=== PATIENT | female | born 1990 | race African-American/Black ===

== ENCOUNTER 2017-07-11 14:59 | Emergency (ER) | payer MEDICAID ==
[~2017-07-11] VITALS: Ht 160 cm; Wt 120.0 kg
[~2017-07-11 14:59] MED LIST: COGENTIN 1MG1 MG/TAB PO; DEPAKOTE ER 25250 MG PO; DEPAKOTE ER 50500 MG PO; HALDOL 5MG T5 MG/TAB PO; HALDOL DEC100 MG/1 M IM; KLONOPIN WAFERS1 MG PO; RISPERDAL 0.20.25 MG PO; SEROQUEL 1100 MG/TAB PO
[2017-07-11 15:10] VITALS: BP 119/61; TEMP 98
[2017-07-11] MEDS ORDERED: HALDOL 1MG T1 MG/TAB PO (15:49)
[2017-07-11 15:51] LABS: COLLECTION METHOD CLEAN CATCH
[2017-07-11 15:58] LABS: PH 6 (5-8); SQUAMOUS EPITHELIAL None Seen /hpf; URINE APPEARANCE Clear; URINE BACTERIA None Seen /hpf; URINE BILIRUBIN Negative (NEGATIVE); URINE BLOOD 1+ (NEGATIVE); URINE COLOR Colorless; URINE GLUCOSE Negative (NEGATIVE); URINE KETONE Negative (NEGATIVE); URINE LEUKOCYTE ESTERASE Negative (NEGATIVE); URINE NITRATE Negative (NEGATIVE); URINE PROTEIN(semi-quant) Negative (NEGATIVE); URINE RBC 0-2 /hpf; URINE UROBILINOGEN Negative (NEGATIVE)
[2017-07-11 16:05] LABS: TRICYCLIC ANTIDEPRESS URINE NEGATIVE
[2017-07-11 16:16] LABS: ACETAMINOPHEN < 10 ug/mL (10-30); ALANINE AMINOTRANSFERASE 24 U/L (9-52); ALBUMIN 4.5 gm/dL (3.5-5.0); ALCOHOL(ethanol),MEDICAL < 10 mg/dL; ALKALINE PHOSPHATASE 69 U/L (50-136); ANION GAP 9 mmol/L (7-16); AST,SGOT 14 U/L (15-37); BILIRUBIN,TOTAL 0.2 mg/dL (0.0-1.0); BLOOD UREA NITROGEN 5 mg/dL (7-17); CALCIUM 9.5 mg/dL (8.4-10.2); CARBON DIOXIDE 27 mmol/L (22-30); CHLORIDE 105 mmol/L (98-107); GLUCOSE 73 mg/dL (74-106); POTASSIUM 3.7 mmol/L (3.4-5.0); SALICYLATE < 1.0 mg/dL; SODIUM 140 mmol/L (137-145); TOTAL PROTEIN 7.7 gm/dL (6.4-8.2)
[2017-07-11 16:17] LABS: BASO % 0.2 % (0.0-2.0); EOS # 0.1 (0.0-0.7); EOS % 0.9 % (0-4.0); GRAN % 55.4 % (42.2-75.2); HEMATOCRIT 41.6 % (37.0-47.0); HEMOGLOBIN 13.6 g/dl (12.5-16.0); LYMPH # 3.4 (1.2-3.4); MEAN CELL VOLUME 87 fl (80.0-100.0); MEAN CORPUSCULAR HEMOGLOBIN 28 pg (27.0-31.0); MEAN CORPUSCULAR HGB CONC 33 g/dl (33.0-37.0); MEAN PLATELET VOLUME 10.9 fl (7.4-10.4); MONO # 0.6 (0.1-0.6); MONO % 6.3 % (1.7-9.3); PLATELET COUNT 359 K/mm3 (130-400); RED BLOOD COUNT 4.81 M/mm3 (4.10-5.30); REDCELL DISTRIBUTION WIDTH-CV 14.5 % (11.5-14.5)
[2017-07-11 19:09] VITALS: PULSE 80
== END 2017-07-11 19:14 ==
LOC: COL.ER 14:59
PROVIDERS: Emergency Medicine
DX: F20.9 Schizophrenia, unspecified (principal); R45.851 Suicidal ideations; F32.9 Major depressive disorder, single episode, unspecified; F17.210 Nicotine dependence, cigarettes, uncomplicated

== ENCOUNTER 2017-09-05 13:52 | Emergency (ER) | payer MEDICARE, MEDICAID ==
[~2017-09-05] VITALS: Ht 157.5 cm; Wt 81.8 kg
[~2017-09-05 13:52] MED LIST changes: +HALDOL 1MG T1 MG/TAB PO
[2017-09-05 14:21] VITALS: TEMP 98.2
[2017-09-05 16:52] LABS: BASO % 0.3 % (0.0-2.0); EOS # 0.1 (0.0-0.7); EOS % 0.7 % (0-4.0); GRAN # 3.3 (1.4-6.5); GRAN % 47.6 % (42.2-75.2); HEMATOCRIT 38.4 % (37.0-47.0); HEMOGLOBIN 12.7 g/dl (12.5-16.0); LYMPH % 42.7 % (20.0-51.0); MEAN CELL VOLUME 85 fl (80.0-100.0); MEAN CORPUSCULAR HEMOGLOBIN 28 pg (27.0-31.0); MEAN CORPUSCULAR HGB CONC 33 g/dl (33.0-37.0); MEAN PLATELET VOLUME 10.4 fl (7.4-10.4); MONO # 0.6 (0.1-0.6); MONO % 8.6 % (1.7-9.3); PLATELET COUNT 319 K/mm3 (130-400); RED BLOOD COUNT 4.54 M/mm3 (4.10-5.30); REDCELL DISTRIBUTION WIDTH-CV 15.2 % (11.5-14.5)
[2017-09-05 17:05] LABS: ACETAMINOPHEN < 10 ug/mL (10-30); ALANINE AMINOTRANSFERASE 25 U/L (9-52); ALBUMIN 3.9 gm/dL (3.5-5.0); ALCOHOL(ethanol),MEDICAL < 10 mg/dL; ALKALINE PHOSPHATASE 68 U/L (50-136); ANION GAP 12 mmol/L (7-16); AST,SGOT 15 U/L (15-37); BILIRUBIN,TOTAL 0.1 mg/dL (0.0-1.0); BLOOD UREA NITROGEN 6 mg/dL (7-17); CARBON DIOXIDE 26 mmol/L (22-30); CHLORIDE 104 mmol/L (98-107); CREATININE, serum 0.76 mg/dL (0.52-1.25); GLUCOSE 101 mg/dL (74-106); MAGNESIUM 2.1 mg/dL (1.6-2.3); POTASSIUM 3.9 mmol/L (3.4-5.0); SALICYLATE < 1.0 mg/dL; SODIUM 142 mmol/L (137-145); TOTAL PROTEIN 7.2 gm/dL (6.4-8.2)
[2017-09-05 17:17] LABS: VALPROIC ACID (DEPAKENE) < 10.0 ug/mL (50.0-100.0)
[2017-09-05 18:20] LABS: COLLECTION METHOD RANDOM VOIDED
[2017-09-05 18:30] LABS: MUCOUS Present /lpf; PH 5 (5-8); URINE APPEARANCE Cloudy; URINE BACTERIA None Seen /hpf; URINE BILIRUBIN Negative (NEGATIVE); URINE BLOOD 3+ (NEGATIVE); URINE COLOR Amber; URINE GLUCOSE Negative (NEGATIVE); URINE KETONE Negative (NEGATIVE); URINE LEUKOCYTE ESTERASE Trace (NEGATIVE); URINE NITRATE Negative (NEGATIVE); URINE PROTEIN(semi-quant) 2+ (NEGATIVE); URINE RBC >50 /hpf
[2017-09-05 18:35] LABS: TRICYCLIC ANTIDEPRESS URINE NEGATIVE
[2017-09-05] MEDS ORDERED: CEFTIN500 MG PO (21:26)
[2017-09-05 22:00] VITALS: BP 111/63
[2017-09-06 00:45] VITALS: PULSE 88
== END 2017-09-06 00:45 | disposition home or self-care (01) ==
LOC: COL.ER 13:52
PROVIDERS: Emergency Medicine
DX: F20.9 Schizophrenia, unspecified (principal); F12.90 Cannabis use, unspecified, uncomplicated; R45.851 Suicidal ideations; R21 Rash and other nonspecific skin eruption; F17.210 Nicotine dependence, cigarettes, uncomplicated
CPT/HCPCS: J8540

== ENCOUNTER 2018-10-28 01:11 | Emergency (ER) | payer MEDICAID ==
[~2018-10-28] VITALS: Ht 160 cm; Wt 97.7 kg
[~2018-10-28 01:11] MED LIST changes: +CEFTIN500 MG PO; -DEPAKOTE ER 25250 MG PO
[2018-10-28 01:48] LABS: HEMOGLOBIN 11.6 g/dl (12.5-16.0); MEAN CELL VOLUME 90 fl (80.0-100.0); MEAN CORPUSCULAR HEMOGLOBIN 29 pg (27.0-31.0); MEAN CORPUSCULAR HGB CONC 32 g/dl (33.0-37.0); MEAN PLATELET VOLUME 9.5 fl (7.4-10.4); PLATELET COUNT 385 K/mm3 (130-400); RED BLOOD COUNT 4.06 M/mm3 (4.10-5.30); REDCELL DISTRIBUTION WIDTH-CV 14.6 % (11.5-14.5)
[2018-10-28 01:52] LABS: HEMATOCRIT 36.5 % (37.0-47.0)
[2018-10-28] MEDS ORDERED: ZYPREXA15 MG PO (02:08)
[2018-10-28 02:13] LABS: ALANINE AMINOTRANSFERASE 7 U/L (9-52); ALBUMIN 3.9 gm/dL (3.5-5.0); ALKALINE PHOSPHATASE 64 U/L (50-136); ANION GAP 10 mmol/L (7-16); AST,SGOT 17 U/L (15-37); BAND 1 % (0-10); BILIRUBIN,TOTAL 0.2 mg/dL (0.0-1.0); BLOOD UREA NITROGEN 10 mg/dL (7-17); CALCIUM 9.1 mg/dL (8.4-10.2); CARBON DIOXIDE 26 mmol/L (22-30); CHLORIDE 106 mmol/L (98-107); CREATININE, serum 0.81 (0.52-1.25); GLUCOSE 88 mg/dL (74-106); LYMPHOCYTE 57 % (20.0-51.0); NEUTROPHILS 38 % (42.0-75.2); POTASSIUM 3.6 mmol/L (3.4-5.0); SODIUM 142 mmol/L (137-145); TOTAL PROTEIN 7.2 gm/dL (6.4-8.2)
[2018-10-28 02:14] LABS: PLATELET ESTIMATE NORMAL (NORMAL)
[2018-10-28 02:15] LABS: COLLECTION METHOD CLEAN CATCH
[2018-10-28 02:16] LABS: ACETAMINOPHEN < 10 ug/mL (10-30); ALCOHOL(ethanol),MEDICAL < 10 mg/dL; SALICYLATE < 1.0 mg/dL
[2018-10-28 02:21] LABS: PH 7 (5-8); SQUAMOUS EPITHELIAL None Seen /hpf; URINE APPEARANCE Clear; URINE BACTERIA None Seen /hpf; URINE BILIRUBIN Negative (NEGATIVE); URINE BLOOD 2+ (NEGATIVE); URINE COLOR Colorless; URINE GLUCOSE Negative (NEGATIVE); URINE KETONE Negative (NEGATIVE); URINE LEUKOCYTE ESTERASE Negative (NEGATIVE); URINE NITRATE Negative (NEGATIVE); URINE PROTEIN(semi-quant) Negative (NEGATIVE); URINE RBC None Seen /hpf; URINE UROBILINOGEN Negative (NEGATIVE)
[2018-10-28 02:34] LABS: TRICYCLIC ANTIDEPRESS URINE NEGATIVE
[2018-10-28 14:22] VITALS: BP 117/61; PULSE 81; TEMP 98
== END 2018-10-28 14:30 ==
LOC: COL.ER 01:11
PROVIDERS: Emergency Medicine
DX: F25.1 Schizoaffective disorder, depressive type (principal)

== ENCOUNTER 2018-11-09 16:16 | Emergency (ER) | payer MEDICAID ==
[~2018-11-09] VITALS: Ht 160 cm; Wt 90.9 kg
[~2018-11-09 16:16] MED LIST changes: +ZYPREXA15 MG PO
[2018-11-09 16:23] VITALS: BP 134/98; PULSE 136; TEMP 97.7
== END 2018-11-09 17:06 | disposition left against medical advice (07) ==
LOC: COL.ER 16:16
DX: R45.851 Suicidal ideations (principal)

== ENCOUNTER 2018-11-09 17:23 | Emergency (ER) | payer MEDICAID ==
[~2018-11-09] VITALS: Ht 157.5 cm; Wt 95.5 kg
[2018-11-09 17:35] VITALS: TEMP 99.2
[2018-11-09 18:22] LABS: COLLECTION METHOD CLEAN CATCH
[2018-11-09 18:30] LABS: PH 6 (5-8); URINE APPEARANCE Hazy; URINE BACTERIA None Seen /hpf; URINE BILIRUBIN Negative (NEGATIVE); URINE BLOOD Negative (NEGATIVE); URINE COLOR Yellow; URINE GLUCOSE Negative (NEGATIVE); URINE KETONE Trace (NEGATIVE); URINE LEUKOCYTE ESTERASE Negative (NEGATIVE); URINE NITRATE Negative (NEGATIVE); URINE PROTEIN(semi-quant) Negative (NEGATIVE); URINE RBC 0-2 /hpf
[2018-11-09 18:38] LABS: BASO % 0.1 % (0.0-2.0); EOS # 0.1 (0.0-0.7); EOS % 0.6 % (0-4.0); GRAN # 3.8 (1.4-6.5); GRAN % 49.4 % (42.2-75.2); HEMATOCRIT 38.5 % (37.0-47.0); HEMOGLOBIN 12.6 g/dl (12.5-16.0); LYMPH # 3.1 (1.2-3.4); LYMPH % 39.5 % (20.0-51.0); MEAN CELL VOLUME 87 fl (80.0-100.0); MEAN CORPUSCULAR HEMOGLOBIN 28 pg (27.0-31.0); MEAN CORPUSCULAR HGB CONC 33 g/dl (33.0-37.0); MEAN PLATELET VOLUME 10.4 fl (7.4-10.4); MONO # 0.8 (0.1-0.6); MONO % 10.3 % (1.7-9.3); PLATELET COUNT 291 K/mm3 (130-400); RED BLOOD COUNT 4.43 M/mm3 (4.10-5.30); REDCELL DISTRIBUTION WIDTH-CV 14.3 % (11.5-14.5)
[2018-11-09 18:41] LABS: TRICYCLIC ANTIDEPRESS URINE NEGATIVE
[2018-11-09 18:49] LABS: ACETAMINOPHEN < 10 ug/mL (10-30); ALANINE AMINOTRANSFERASE 16 U/L (9-52); ALBUMIN 3.9 gm/dL (3.5-5.0); ALCOHOL(ethanol),MEDICAL < 10 mg/dL; ALKALINE PHOSPHATASE 72 U/L (50-136); ANION GAP 8 mmol/L (7-16); AST,SGOT 17 U/L (15-37); BILIRUBIN,TOTAL 0.2 mg/dL (0.0-1.0); BLOOD UREA NITROGEN 11 mg/dL (7-17); CALCIUM 8.9 mg/dL (8.4-10.2); CARBON DIOXIDE 27 mmol/L (22-30); CHLORIDE 104 mmol/L (98-107); CREATININE, serum 0.74 (0.52-1.25); GLUCOSE 92 mg/dL (74-106); SALICYLATE < 1.0 mg/dL; SODIUM 139 mmol/L (137-145); TOTAL PROTEIN 7.3 gm/dL (6.4-8.2)
[2018-11-10 16:35] VITALS: BP 116/77; PULSE 98
== END 2018-11-10 17:22 ==
LOC: COL.ER 17:23
PROVIDERS: Nurse Practitioner
DX: R45.851 Suicidal ideations (principal); F20.9 Schizophrenia, unspecified; F17.210 Nicotine dependence, cigarettes, uncomplicated; F12.90 Cannabis use, unspecified, uncomplicated; J45.909 Unspecified asthma, uncomplicated

== ENCOUNTER 2018-11-22 18:12 | Emergency (ER) | payer MEDICAID ==
[~2018-11-22] VITALS: Ht 160 cm; Wt 95.5 kg
[2018-11-22 19:17] VITALS: TEMP 99.6
[2018-11-23 15:06] VITALS: BP 105/58
[2018-11-23 17:15] VITALS: PULSE 78
== END 2018-11-23 17:15 ==
LOC: COL.ER 18:16
DX: F29 Unspecified psychosis not due to a substance or known physiological condition (principal); F12.90 Cannabis use, unspecified, uncomplicated; F31.9 Bipolar disorder, unspecified; F20.9 Schizophrenia, unspecified

== ENCOUNTER 2019-02-08 19:01 | Emergency (ER) | payer MEDICAID ==
[~2019-02-08] VITALS: Ht 157.5 cm; Wt 95.5 kg
[2019-02-08 19:21] VITALS: BP 125/76; TEMP 98.1
[2019-02-08 20:24] LABS: COLLECTION METHOD CLEAN CATCH
[2019-02-08 20:30] LABS: PH 6 (5-8); URINE APPEARANCE Hazy; URINE BACTERIA Rare /hpf; URINE BILIRUBIN Negative (NEGATIVE); URINE BLOOD 3+ (NEGATIVE); URINE COLOR Yellow; URINE GLUCOSE Negative (NEGATIVE); URINE KETONE 1+ (NEGATIVE); URINE LEUKOCYTE ESTERASE Negative (NEGATIVE); URINE NITRATE Negative (NEGATIVE); URINE PROTEIN(semi-quant) Negative (NEGATIVE); URINE RBC 0-2 /hpf; URINE UROBILINOGEN Negative (NEGATIVE)
[2019-02-08 20:37] LABS: TRICYCLIC ANTIDEPRESS URINE NEGATIVE
[2019-02-08 20:41] LABS: BASO % 0.3 % (0.0-2.0); EOS % 0.1 % (0-4.0); GRAN # 3.6 (1.4-6.5); GRAN % 48.9 % (42.2-75.2); HEMATOCRIT 41.5 % (37.0-47.0); HEMOGLOBIN 13.6 g/dl (12.5-16.0); LYMPH # 3.2 (1.2-3.4); LYMPH % 43.8 % (20.0-51.0); MEAN CELL VOLUME 82 fl (80.0-100.0); MEAN CORPUSCULAR HEMOGLOBIN 27 pg (27.0-31.0); MEAN CORPUSCULAR HGB CONC 33 g/dl (33.0-37.0); MEAN PLATELET VOLUME 10.8 fl (7.4-10.4); MONO # 0.5 (0.1-0.6); MONO % 6.8 % (1.7-9.3); PLATELET COUNT 285 K/mm3 (130-400); RED BLOOD COUNT 5.04 M/mm3 (4.10-5.30)
[2019-02-08 20:53] LABS: ALANINE AMINOTRANSFERASE 7 U/L (9-52); ALBUMIN 4.5 gm/dL (3.5-5.0); ALKALINE PHOSPHATASE 65 U/L (50-136); ANION GAP 11 mmol/L (7-16); AST,SGOT 20 U/L (15-37); BILIRUBIN,TOTAL 0.3 mg/dL (0.0-1.0); BLOOD UREA NITROGEN 9 mg/dL (7-17); CALCIUM 9.6 mg/dL (8.4-10.2); CARBON DIOXIDE 24 mmol/L (22-30); CHLORIDE 106 mmol/L (98-107); CREATININE, serum 0.68 (0.52-1.25); GLUCOSE 106 mg/dL (74-106); POTASSIUM 4.2 mmol/L (3.4-5.0); SODIUM 140 mmol/L (137-145); TOTAL PROTEIN 7.8 gm/dL (6.4-8.2)
[2019-02-08 20:58] LABS: ACETAMINOPHEN < 10 ug/mL (10-30); ALCOHOL(ethanol),MEDICAL < 10 mg/dL; SALICYLATE < 1.0 mg/dL
[2019-02-08 21:13] LABS: VALPROIC ACID (DEPAKENE) 80.1 ug/mL (50.0-100.0)
[2019-02-08 21:38] VITALS: PULSE 86
== END 2019-02-08 21:35 | disposition home or self-care (01) ==
LOC: COL.ER 19:01
PROVIDERS: Emergency Medicine
DX: F29 Unspecified psychosis not due to a substance or known physiological condition (principal); F31.9 Bipolar disorder, unspecified; F20.9 Schizophrenia, unspecified; F17.210 Nicotine dependence, cigarettes, uncomplicated

== ENCOUNTER 2020-04-16 14:08 | Emergency (ER) | payer MEDICARE ==
[~2020-04-16] VITALS: Ht 167.6 cm; Wt 72.7 kg
[2020-04-16 14:52] LABS: BASO % 0.3 % (0.0-2.0); EOS # 0.1 (0.0-0.7); EOS % 1.6 % (0-4.0); GRAN # 2.9 (1.4-6.5); GRAN % 42.9 % (42.2-75.2); HEMATOCRIT 34.5 % (37.0-47.0); HEMOGLOBIN 10.9 g/dl (12.5-16.0); LYMPH % 44.4 % (20.0-51.0); MEAN CELL VOLUME 85 fl (80.0-100.0); MEAN CORPUSCULAR HEMOGLOBIN 27 pg (27.0-31.0); MEAN CORPUSCULAR HGB CONC 32 g/dl (33.0-37.0); MEAN PLATELET VOLUME 10.2 fl (7.4-10.4); MONO # 0.7 (0.1-0.6); MONO % 10.7 % (1.7-9.3); PLATELET COUNT 323 K/mm3 (130-400); RED BLOOD COUNT 4.04 M/mm3 (4.10-5.30); REDCELL DISTRIBUTION WIDTH-CV 14.6 % (11.5-14.5)
[2020-04-16 15:06] LABS: ALANINE AMINOTRANSFERASE 13 U/L (4-34); ALBUMIN 4.1 gm/dL (3.5-5.0); ALKALINE PHOSPHATASE 60 U/L (50-136); ANION GAP 7 mmol/L (7-16); AST,SGOT 16 U/L (15-37); BILIRUBIN,TOTAL 0.2 mg/dL (0.0-1.0); BLOOD UREA NITROGEN 11 mg/dL (7-17); CARBON DIOXIDE 27 mmol/L (22-30); CHLORIDE 105 mmol/L (98-107); CREATININE, serum 0.81 (0.52-1.25); GLUCOSE 91 mg/dL (74-106); POTASSIUM 3.9 mmol/L (3.4-5.0); SODIUM 139 mmol/L (137-145); TOTAL PROTEIN 7.2 gm/dL (6.4-8.2)
[2020-04-16 15:07] LABS: ACETAMINOPHEN < 10 ug/mL (10-30); ALCOHOL(ethanol),MEDICAL < 10 mg/dL; SALICYLATE < 1.0 mg/dL
[2020-04-16 15:10] LABS: COLLECTION METHOD CLEAN CATCH
[2020-04-16 15:30] LABS: TRICYCLIC ANTIDEPRESS URINE NEGATIVE
[2020-04-16 15:31] LABS: MUCOUS Present /lpf; PH 5 (5-8); SQUAMOUS EPITHELIAL 0-2 /hpf; URINE APPEARANCE Hazy; URINE BACTERIA None Seen /hpf; URINE BILIRUBIN Negative (NEGATIVE); URINE BLOOD Negative (NEGATIVE); URINE COLOR Yellow; URINE GLUCOSE Negative (NEGATIVE); URINE KETONE Negative (NEGATIVE); URINE LEUKOCYTE ESTERASE Negative (NEGATIVE); URINE NITRATE Negative (NEGATIVE); URINE PROTEIN(semi-quant) Negative (NEGATIVE); URINE RBC 0-2 /hpf
[2020-04-17 22:15] VITALS: BP 136/81; PULSE 82; TEMP 97.9
== END 2020-04-17 22:27 | disposition home or self-care (01) ==
LOC: COL.ER 14:08
PROVIDERS: Family Medicine
DX: F29 Unspecified psychosis not due to a substance or known physiological condition (principal); Z20.828 Contact with and (suspected) exposure to other viral communicable diseases

== ENCOUNTER 2020-05-20 18:28 | Emergency (ER) | payer MEDICARE ==
[~2020-05-20] VITALS: Ht 167.6 cm; Wt 90.9 kg
[2020-05-20 18:30] VITALS: TEMP 98.3
[2020-05-20 18:56] LABS: COLLECTION METHOD CLEAN CATCH
[2020-05-20 18:57] LABS: BASO % 0.3 % (0.0-2.0); EOS # 0.1 (0.0-0.7); EOS % 1.4 % (0-4.0); GRAN # 2.8 (1.4-6.5); GRAN % 36.8 % (42.2-75.2); HEMATOCRIT 37.8 % (37.0-47.0); HEMOGLOBIN 12.2 g/dl (12.5-16.0); LYMPH # 3.9 (1.2-3.4); LYMPH % 51.2 % (20.0-51.0); MEAN CELL VOLUME 81 fl (80.0-100.0); MEAN CORPUSCULAR HEMOGLOBIN 26 pg (27.0-31.0); MEAN CORPUSCULAR HGB CONC 32 g/dl (33.0-37.0); MONO # 0.8 (0.1-0.6); PLATELET COUNT 306 K/mm3 (130-400); RED BLOOD COUNT 4.66 M/mm3 (4.10-5.30); REDCELL DISTRIBUTION WIDTH-CV 16.4 % (11.5-14.5)
[2020-05-20 19:02] LABS: MUCOUS Present /lpf; PH 6 (5-8); URINE APPEARANCE Hazy; URINE BACTERIA None Seen /hpf; URINE BILIRUBIN Negative (NEGATIVE); URINE BLOOD 2+ (NEGATIVE); URINE COLOR Straw; URINE GLUCOSE Negative (NEGATIVE); URINE KETONE Negative (NEGATIVE); URINE LEUKOCYTE ESTERASE Negative (NEGATIVE); URINE NITRATE Negative (NEGATIVE); URINE PROTEIN(semi-quant) Negative (NEGATIVE); URINE RBC 0-2 /hpf; URINE UROBILINOGEN Negative (NEGATIVE)
[2020-05-20 19:12] LABS: ALANINE AMINOTRANSFERASE 15 U/L (4-34); ALBUMIN 4.2 gm/dL (3.5-5.0); ALKALINE PHOSPHATASE 60 U/L (50-136); ANION GAP 10 mmol/L (7-16); AST,SGOT 18 U/L (15-37); BILIRUBIN,TOTAL 0.4 mg/dL (0.0-1.0); BLOOD UREA NITROGEN 2 mg/dL (7-17); CALCIUM 9.4 mg/dL (8.4-10.2); CARBON DIOXIDE 23 mmol/L (22-30); CHLORIDE 103 mmol/L (98-107); CREATININE, serum 0.64 (0.52-1.25); GLUCOSE 105 mg/dL (74-106); POTASSIUM 3.4 mmol/L (3.4-5.0); SODIUM 136 mmol/L (137-145); TOTAL PROTEIN 7.2 gm/dL (6.4-8.2)
[2020-05-20 19:13] LABS: ACETAMINOPHEN < 10 ug/mL (10-30); ALCOHOL(ethanol),MEDICAL < 10 mg/dL; SALICYLATE < 1.0 mg/dL; TRICYCLIC ANTIDEPRESS URINE NEGATIVE
[2020-05-21 12:25] VITALS: BP 103/62; PULSE 112
== END 2020-05-21 19:12 | disposition home or self-care (01) ==
LOC: COL.ER 18:28
PROVIDERS: Nurse Practitioner
DX: R45.850 Homicidal ideations (principal); F60.0 Paranoid personality disorder; Z32.02 Encounter for pregnancy test, result negative; Z20.828 Contact with and (suspected) exposure to other viral communicable diseases

== ENCOUNTER 2021-08-28 15:13 | Emergency (ER) | payer SELFPAY ==
[~2021-08-28] VITALS: Ht 160 cm; Wt 91.8 kg
[2021-08-28 15:24] VITALS: BP 119/72; PULSE 112; TEMP 98
[2021-08-28 15:57] LABS: COLLECTION METHOD CLEAN CATCH
[2021-08-28 16:12] LABS: MUCOUS Present (NOT PRESENT); PH 6 (5-8); SQUAMOUS EPITHELIAL 0-2 /hpf (0-10); URINE APPEARANCE Cloudy (CLEAR/HAZY); URINE BACTERIA Rare /hpf (NONE SEEN); URINE BILIRUBIN Negative (NEGATIVE); URINE BLOOD 1+ (NEGATIVE); URINE COLOR Yellow (YELLOW); URINE GLUCOSE Negative (NEGATIVE); URINE KETONE Negative (NEGATIVE); URINE LEUKOCYTE ESTERASE Negative (NEGATIVE); URINE NITRATE Negative (NEGATIVE); URINE PROTEIN(semi-quant) Negative (NEGATIVE); URINE UROBILINOGEN Negative (NEGATIVE)
[2021-08-28 16:15] LABS: TRICYCLIC ANTIDEPRESS URINE NEGATIVE
[2021-08-28 16:24] LABS: HEMOGLOBIN 11.9 g/dl (12.5-16.0); MEAN CELL VOLUME 82 fl (80.0-100.0); MEAN CORPUSCULAR HEMOGLOBIN 27 pg (27-31); MEAN CORPUSCULAR HGB CONC 33 g/dl (33.0-37.0); MEAN PLATELET VOLUME 10.6 fl (7.4-10.4); PLATELET COUNT 307 K/mm3 (130-400); RED BLOOD COUNT 4.43 M/mm3 (4.10-5.30); REDCELL DISTRIBUTION WIDTH-CV 17.2 % (11.5-14.5)
[2021-08-28 16:35] LABS: HEMATOCRIT 36.3 % (37.0-47.0)
[2021-08-28 16:42] LABS: ALANINE AMINOTRANSFERASE 11 U/L (0-55); ALKALINE PHOSPHATASE 67 U/L (40-150); ANION GAP 8 mmol/L (7-16); AST,SGOT 18 U/L (5-34); BILIRUBIN,TOTAL 0.2 mg/dL (0.2-1.2); BLOOD UREA NITROGEN 7 mg/dL (7-19); CALCIUM 9.2 mg/dL (8.4-10.2); CARBON DIOXIDE 28 mmol/L (22-29); CHLORIDE 101 mmol/L (98-107); CREATININE, serum 0.75 mg/dL (0.57-1.11); GLUCOSE 94 mg/dL (70-99); POTASSIUM 4.1 mmol/L (3.5-4.5); SODIUM 137 mmol/L (136-145); TOTAL PROTEIN 7.8 gm/dL (6.2-8.1)
[2021-08-28 16:49] LABS: ACETAMINOPHEN < 1.0 ug/mL (10-30); ALCOHOL(ethanol),MEDICAL < 10 mg/dL (0-10); SALICYLATE < 5.0 mg/dL (15.0-30.0)
[2021-08-28 17:02] LABS: TSH w REFLEX 2.273 uIU/mL (0.350-4.940)
[2021-08-28 17:08] LABS: BAND 1 % (0-10); LYMPHOCYTE 19 % (20.0-51.0); NEUTROPHILS 72 % (42.0-75.2); PLATELET ESTIMATE NORMAL (NORMAL)
== END 2021-08-29 07:47 ==
LOC: COL.ER 15:13
PROVIDERS: Nurse Practitioner Family
DX: R45.851 Suicidal ideations (principal); R44.0 Auditory hallucinations; Z20.822 Contact with and (suspected) exposure to COVID-19

== ENCOUNTER 2021-10-04 23:49 | Emergency (ER) | payer SELFPAY ==
[2021-10-05 00:29] LABS: BASO % 0.3 % (0.0-2.0); EOS # 0.1 K/mm3 (0.0-0.7); EOS % 1.3 % (0.0-4.0); GRAN # 3.6 K/mm3 (1.4-6.5); HEMATOCRIT 39.1 % (37.0-47.0); HEMOGLOBIN 12.2 g/dl (12.5-16.0); LYMPH # 3.4 K/mm3 (1.2-3.4); LYMPH % 43.2 % (20.0-51.0); MEAN CELL VOLUME 88 fl (80.0-100.0); MEAN CORPUSCULAR HEMOGLOBIN 27 pg (27-31); MEAN CORPUSCULAR HGB CONC 31 g/dl (33.0-37.0); MEAN PLATELET VOLUME 9.7 fl (7.4-10.4); MONO # 0.7 K/mm3 (0.1-0.6); MONO % 9.1 % (1.7-9.3); PLATELET COUNT 328 K/mm3 (130-400); RED BLOOD COUNT 4.45 M/mm3 (4.10-5.30)
[2021-10-05 00:58] LABS: ALANINE AMINOTRANSFERASE 10 U/L (0-55); ALBUMIN 3.7 gm/dL (3.5-5.0); ALKALINE PHOSPHATASE 68 U/L (40-150); ANION GAP 8 mmol/L (7-16); AST,SGOT 12 U/L (5-34); BILIRUBIN,TOTAL 0.1 mg/dL (0.2-1.2); BLOOD UREA NITROGEN 13 mg/dL (7-19); CALCIUM 8.5 mg/dL (8.4-10.2); CARBON DIOXIDE 23 mmol/L (22-29); CHLORIDE 107 mmol/L (98-107); CREATININE, serum 0.77 mg/dL (0.57-1.11); GLUCOSE 102 mg/dL (70-99); POTASSIUM 3.8 mmol/L (3.5-4.5); SODIUM 138 mmol/L (136-145)
[2021-10-05 01:00] LABS: ACETAMINOPHEN < 1.0 ug/mL (10-30); ALCOHOL(ethanol),MEDICAL < 10 mg/dL (0-10); SALICYLATE < 5.0 mg/dL (15.0-30.0)
[2021-10-05 05:55] LABS: COLLECTION METHOD CLEAN CATCH
[2021-10-05 06:12] LABS: PH 6 (5-8); SQUAMOUS EPITHELIAL 0-2 /hpf (0-10); URINE APPEARANCE Clear (CLEAR/HAZY); URINE BACTERIA None Seen /hpf (NONE SEEN); URINE BILIRUBIN Negative (NEGATIVE); URINE BLOOD Negative (NEGATIVE); URINE COLOR Yellow (YELLOW); URINE GLUCOSE Negative (NEGATIVE); URINE KETONE Negative (NEGATIVE); URINE LEUKOCYTE ESTERASE Negative (NEGATIVE); URINE NITRATE Negative (NEGATIVE); URINE PROTEIN(semi-quant) Negative (NEGATIVE); URINE RBC None Seen /hpf (0-2); URINE UROBILINOGEN Negative (NEGATIVE)
[2021-10-05 06:17] LABS: TRICYCLIC ANTIDEPRESS URINE NEGATIVE
[2021-10-06 15:25] VITALS: BP 123/66; PULSE 78
== END 2021-10-06 15:25 ==
LOC: COL.ER 23:49
PROVIDERS: Family Medicine
DX: F20.0 Paranoid schizophrenia (principal); Z20.822 Contact with and (suspected) exposure to COVID-19
CPT/HCPCS: J1790

== ENCOUNTER 2021-12-24 21:12 | Emergency (ER) | payer SELFPAY ==
[2021-12-24 21:23] VITALS: TEMP 99
[2021-12-25 14:47] VITALS: BP 101/67; PULSE 112
== END 2021-12-25 14:47 ==
LOC: COL.ER 21:12
DX: R45.851 Suicidal ideations (principal); R44.3 Hallucinations, unspecified; F17.200 Nicotine dependence, unspecified, uncomplicated; Z28.310 Unvaccinated for COVID-19
CPT/HCPCS: J1630; J2060

== ENCOUNTER 2022-01-26 16:57 | Emergency (ER) | payer SELFPAY ==
[2022-01-26 17:16] VITALS: BP 116/74; PULSE 125; TEMP 98.3
== END 2022-01-26 17:28 | disposition left against medical advice (07) ==
LOC: COL.ER 16:57
DX: R44.0 Auditory hallucinations (principal); Z28.310 Unvaccinated for COVID-19

== ENCOUNTER 2022-01-27 04:58 | Emergency (ER) | payer SELFPAY ==
[~2022-01-27] VITALS: Ht 152.4 cm; Wt 86.4 kg
[2022-01-27 05:44] LABS: BASO % 0.4 % (0.0-2.0); EOS # 0.1 K/mm3 (0.0-0.7); EOS % 1.5 % (0.0-4.0); GRAN # 3.3 K/mm3 (1.4-6.5); GRAN % 40.2 % (42.2-75.2); HEMATOCRIT 37.8 % (37.0-47.0); HEMOGLOBIN 12.3 g/dl (12.5-16.0); LYMPH % 49.2 % (20.0-51.0); MEAN CELL VOLUME 84 fl (80.0-100.0); MEAN CORPUSCULAR HEMOGLOBIN 27 pg (27-31); MEAN CORPUSCULAR HGB CONC 33 g/dl (33.0-37.0); MEAN PLATELET VOLUME 9.5 fl (7.4-10.4); MONO # 0.7 K/mm3 (0.1-0.6); MONO % 8.5 % (1.7-9.3); PLATELET COUNT 436 K/mm3 (130-400); RED BLOOD COUNT 4.52 M/mm3 (4.10-5.30); REDCELL DISTRIBUTION WIDTH-CV 16.6 % (11.5-14.5)
[2022-01-27 06:02] LABS: ALANINE AMINOTRANSFERASE 15 U/L (0-55); ALBUMIN 3.3 gm/dL (3.5-5.0); ALKALINE PHOSPHATASE 75 U/L (40-150); ANION GAP 9 mmol/L (7-16); AST,SGOT 9 U/L (5-34); BILIRUBIN,TOTAL 0.2 mg/dL (0.2-1.2); BLOOD UREA NITROGEN 6 mg/dL (7-19); CALCIUM 9.1 mg/dL (8.4-10.2); CARBON DIOXIDE 25 mmol/L (22-29); CHLORIDE 107 mmol/L (98-107); CREATININE, serum 0.76 mg/dL (0.57-1.11); GLUCOSE 93 mg/dL (70-99); POTASSIUM 4.5 mmol/L (3.5-4.5); SODIUM 141 mmol/L (136-145); TOTAL PROTEIN 6.9 gm/dL (6.2-8.1)
[2022-01-27 06:15] LABS: ACETAMINOPHEN < 1.0 ug/mL (10-30); ALCOHOL(ethanol),MEDICAL < 10 mg/dL (0-10); SALICYLATE < 5.0 mg/dL (15.0-30.0)
[2022-01-27 07:20] LABS: COLLECTION METHOD CLEAN CATCH
[2022-01-27 07:44] LABS: TRICYCLIC ANTIDEPRESS URINE NEGATIVE
[2022-01-27 08:00] LABS: URINE APPEARANCE Hazy (CLEAR/HAZY); URINE COLOR OTHER (YELLOW)
[2022-01-27 08:01] LABS: URINE BLOOD 2+ (NEGATIVE); URINE GLUCOSE Negative (NEGATIVE); URINE KETONE TRACE (NEGATIVE); URINE NITRATE Negative (NEGATIVE); URINE PROTEIN(semi-quant) 1+ (NEGATIVE); URINE UROBILINOGEN 0.2 E.U/dL (0.2-1.0)
[2022-01-27 08:18] LABS: MUCOUS Present (NOT PRESENT); SQUAMOUS EPITHELIAL 20-50 /hpf (0-10); URINE BACTERIA Many /hpf (NONE SEEN); URINE RBC 0-2 /hpf (0-2)
[2022-01-29 06:29] VITALS: TEMP 96.5
[2022-01-29 14:05] VITALS: BP 117/64; PULSE 94
[2022-01-30] MEDS ORDERED: KLONOPIN 1MG1 MG (13:49)
[2022-01-30] MEDS ORDERED: KLONOPIN 0.5MG0.5 MG PO (14:34)
[2022-01-30] MEDS ORDERED: ZYPREXA ZYDIS15 MG PO (14:34)
[2022-01-30] MEDS ORDERED: TRILEPTAL600 MG PO (14:34)
[2022-01-30] MEDS ORDERED: COGENTIN 2MG2 MG/TA1 PO (14:34)
[2022-01-30] MEDS ORDERED: TRILEPTAL 300M300 MG PO (14:34)
== END 2022-01-29 14:05 | disposition left against medical advice (07) ==
LOC: COL.ER 04:58
PROVIDERS: Emergency Medicine
DX: F31.9 Bipolar disorder, unspecified (principal); F17.210 Nicotine dependence, cigarettes, uncomplicated; Z28.310 Unvaccinated for COVID-19
CPT/HCPCS: J1200; J1630; J2060

== ENCOUNTER 2022-01-30 02:56 | Emergency (ER) | payer SELFPAY ==
[~2022-01-30] VITALS: Ht 160 cm; Wt 95.5 kg
[2022-01-30 03:17] VITALS: TEMP 98.3
[2022-01-30 03:33] LABS: BASO % 0.4 % (0.0-2.0); EOS % 0.6 % (0.0-4.0); GRAN # 3.3 K/mm3 (1.4-6.5); HEMATOCRIT 38.1 % (37.0-47.0); HEMOGLOBIN 12.3 g/dl (12.5-16.0); LYMPH # 3.3 K/mm3 (1.2-3.4); LYMPH % 45.7 % (20.0-51.0); MEAN CELL VOLUME 85 fl (80.0-100.0); MEAN CORPUSCULAR HEMOGLOBIN 28 pg (27-31); MEAN CORPUSCULAR HGB CONC 32 g/dl (33.0-37.0); MEAN PLATELET VOLUME 9.7 fl (7.4-10.4); MONO # 0.6 K/mm3 (0.1-0.6); PLATELET COUNT 394 K/mm3 (130-400); RED BLOOD COUNT 4.48 M/mm3 (4.10-5.30); REDCELL DISTRIBUTION WIDTH-CV 16.2 % (11.5-14.5)
[2022-01-30 03:41] LABS: COLLECTION METHOD CLEAN CATCH
[2022-01-30 03:50] LABS: ALANINE AMINOTRANSFERASE 14 U/L (0-55); ALBUMIN 3.6 gm/dL (3.5-5.0); ALKALINE PHOSPHATASE 75 U/L (40-150); ANION GAP 8 mmol/L (7-16); AST,SGOT 12 U/L (5-34); BILIRUBIN,TOTAL 0.2 mg/dL (0.2-1.2); BLOOD UREA NITROGEN 6 mg/dL (7-19); CALCIUM 8.9 mg/dL (8.4-10.2); CARBON DIOXIDE 25 mmol/L (22-29); CHLORIDE 107 mmol/L (98-107); GLUCOSE 91 mg/dL (70-99); POTASSIUM 4.1 mmol/L (3.5-4.5); SODIUM 140 mmol/L (136-145); TOTAL PROTEIN 7.1 gm/dL (6.2-8.1)
[2022-01-30 03:53] LABS: ACETAMINOPHEN < 1.0 ug/mL (10-30); ALCOHOL(ethanol),MEDICAL < 10 mg/dL (0-10); SALICYLATE < 5.0 mg/dL (15.0-30.0)
[2022-01-30 03:58] LABS: URINE BACTERIA Rare /hpf (NONE SEEN); URINE RBC 0-2 /hpf (0-2)
[2022-01-30 03:59] LABS: PH 7.5 (5.0-8.5); URINE APPEARANCE Clear (CLEAR/HAZY); URINE BLOOD Negative (NEGATIVE); URINE COLOR Yellow (YELLOW); URINE GLUCOSE Negative (NEGATIVE); URINE KETONE Negative (NEGATIVE); URINE NITRATE Negative (NEGATIVE); URINE PROTEIN(semi-quant) Negative (NEGATIVE); URINE UROBILINOGEN 0.2 E.U/dL (0.2-1.0)
[2022-01-30 04:00] LABS: TRICYCLIC ANTIDEPRESS URINE NEGATIVE
[2022-01-30] MEDS ORDERED: KLONOPIN 1MG1 MG (13:49)
[2022-01-30] MEDS ORDERED: ZYPREXA ZYDIS15 MG PO (14:34)
[2022-01-30] MEDS ORDERED: KLONOPIN 0.5MG0.5 MG PO (14:34)
[2022-01-30] MEDS ORDERED: TRILEPTAL 300M300 MG PO (14:34)
[2022-01-30] MEDS ORDERED: TRILEPTAL600 MG PO (14:34)
[2022-01-30] MEDS ORDERED: COGENTIN 2MG2 MG/TA1 PO (14:34)
[2022-01-30 14:38] VITALS: BP 160/92; PULSE 105
== END 2022-01-30 14:41 | disposition home or self-care (01) ==
LOC: COL.ER 02:56
PROVIDERS: Emergency Medicine
DX: R45.851 Suicidal ideations (principal); R44.0 Auditory hallucinations; Z20.822 Contact with and (suspected) exposure to COVID-19; Z28.310 Unvaccinated for COVID-19

== ENCOUNTER 2023-10-14 22:02 | Emergency (ER) | payer SELFPAY ==
[~2023-10-14] VITALS: Ht 160 cm; Wt 65.9 kg
[~2023-10-14 22:02] MED LIST changes: +CLOZARIL25 MG PO; +COGENTIN 2MG2 MG/TA1 PO; +KLONOPIN 0.5MG0.5 MG PO; +KLONOPIN 1MG1 MG; +PROTONIX20 MG PO; +TRILEPTAL 300M300 MG PO; +TRILEPTAL600 MG PO; +ZYPREXA ZYDIS15 MG PO
[2023-10-14 22:35] VITALS: TEMP 98.2
[2023-10-14 22:51] LABS: COLLECTION METHOD CLEAN CATCH
[2023-10-14 22:56] LABS: URINE APPEARANCE CLEAR (CLEAR/HAZY); URINE BLOOD NEGATIVE (NEGATIVE); URINE COLOR YELLOW (YELLOW); URINE GLUCOSE NEGATIVE (NEGATIVE); URINE KETONE NEGATIVE (NEGATIVE); URINE NITRATE NEGATIVE (NEGATIVE); URINE PROTEIN(semi-quant) NEGATIVE (NEGATIVE); URINE UROBILINOGEN 0.2 E.U/dL (0.2-1.0)
[2023-10-14 23:04] LABS: TRICYCLIC ANTIDEPRESS URINE NEGATIVE (NEGATIVE)
[2023-10-14 23:31] LABS: BASO % 0.4 % (0.0-2.0); EOS # 0.1 K/mm3 (0.0-0.7); EOS % 1.1 % (0.0-4.0); GRAN # 3.9 K/mm3 (1.4-6.5); GRAN % 51.8 % (42.2-75.2); LYMPH # 2.7 K/mm3 (1.2-3.4); LYMPH % 35.3 % (20.0-51.0); MEAN CELL VOLUME 85 fl (80.0-100.0); MEAN CORPUSCULAR HEMOGLOBIN 28 pg (27-31); MEAN CORPUSCULAR HGB CONC 33 g/dl (33.0-37.0); MEAN PLATELET VOLUME 9.9 fl (7.4-10.4); MONO # 0.8 K/mm3 (0.1-0.6); MONO % 11.1 % (1.7-9.3); PLATELET COUNT 317 K/mm3 (130-400); RED BLOOD COUNT 4.29 M/mm3 (4.10-5.30); REDCELL DISTRIBUTION WIDTH-CV 16.3 % (11.5-14.5)
[2023-10-14 23:34] LABS: HEMATOCRIT 36.5 % (37.0-47.0)
[2023-10-14 23:51] LABS: ALANINE AMINOTRANSFERASE 15 U/L (0-55); ALBUMIN 3.7 g/dL (3.5-5.0); ALKALINE PHOSPHATASE 63 U/L (40-150); ANION GAP 9 mmol/L (7-16); AST,SGOT 13 U/L (5-34); BILIRUBIN,TOTAL 0.2 mg/dL (0.2-1.2); BLOOD UREA NITROGEN 15 mg/dL (7-19); CALCIUM 9.6 mg/dL (8.4-10.2); CHLORIDE 106 mEq/L (98-107); CREATININE, serum 0.81 mg/dL (0.57-1.11); GLUCOSE 105 mg/dL (70-99); POTASSIUM 4.7 mEq/L (3.5-4.5); SODIUM 138 mEq/L (136-145); TOTAL PROTEIN 7.3 g/dl (6.2-8.1)
[2023-10-14 23:52] LABS: ALCOHOL(ethanol),MEDICAL < 10 mg/dL (0-10); SALICYLATE < 5.0 mg/dL (15.0-30.0)
[2023-10-15 03:43] VITALS: BP 104/62; PULSE 96
== END 2023-10-15 03:43 | disposition home or self-care (01) ==
LOC: COL.ER 22:02
PROVIDERS: Nurse Practitioner
DX: R44.0 Auditory hallucinations (principal); F17.210 Nicotine dependence, cigarettes, uncomplicated; Z86.59 Personal history of other mental and behavioral disorders

== ENCOUNTER 2023-10-15 17:00 | Emergency (ER) | payer SELFPAY ==
[~2023-10-15] VITALS: Ht 165.1 cm; Wt 72.3 kg
[2023-10-15 17:19] VITALS: TEMP 98.6
[2023-10-15 18:49] LABS: TRICYCLIC ANTIDEPRESS URINE NEGATIVE (NEGATIVE)
[2023-10-15 21:39] VITALS: BP 133/71; PULSE 77
== END 2023-10-15 21:42 | disposition home or self-care (01) ==
LOC: COL.ER 17:00
PROVIDERS: Nurse Practitioner
DX: R44.0 Auditory hallucinations (principal); F17.200 Nicotine dependence, unspecified, uncomplicated

== ENCOUNTER 2023-10-16 15:31 | Emergency (ER) | payer SELFPAY ==
[~2023-10-16] VITALS: Ht 165.1 cm; Wt 68.2 kg
[2023-10-16 16:45] LABS: BASO % 0.4 % (0.0-2.0); EOS % 0.6 % (0.0-4.0); GRAN # 2.4 K/mm3 (1.4-6.5); GRAN % 44.9 % (42.2-75.2); HEMOGLOBIN 11.5 g/dl (12.5-16.0); LYMPH # 2.2 K/mm3 (1.2-3.4); LYMPH % 40.6 % (20.0-51.0); MEAN CELL VOLUME 84 fl (80.0-100.0); MEAN CORPUSCULAR HEMOGLOBIN 27 pg (27-31); MEAN CORPUSCULAR HGB CONC 32 g/dl (33.0-37.0); MEAN PLATELET VOLUME 10.4 fl (7.4-10.4); MONO # 0.7 K/mm3 (0.1-0.6); MONO % 13.5 % (1.7-9.3); PLATELET COUNT 312 K/mm3 (130-400); RED BLOOD COUNT 4.27 M/mm3 (4.10-5.30); REDCELL DISTRIBUTION WIDTH-CV 15.9 % (11.5-14.5)
[2023-10-16 16:46] LABS: HEMATOCRIT 35.9 % (37.0-47.0)
[2023-10-16 17:14] LABS: ALANINE AMINOTRANSFERASE 14 U/L (0-55); ALBUMIN 3.8 g/dL (3.5-5.0); ALKALINE PHOSPHATASE 60 U/L (40-150); ANION GAP 8 mmol/L (7-16); AST,SGOT 13 U/L (5-34); BILIRUBIN,TOTAL 0.3 mg/dL (0.2-1.2); BLOOD UREA NITROGEN 13 mg/dL (7-19); CALCIUM 9.6 mg/dL (8.4-10.2); CHLORIDE 107 mEq/L (98-107); CREATININE, serum 0.74 mg/dL (0.57-1.11); GLUCOSE 89 mg/dL (70-99); POTASSIUM 4.1 mEq/L (3.5-4.5); SODIUM 139 mEq/L (136-145); TOTAL PROTEIN 7.3 g/dl (6.2-8.1)
[2023-10-16 17:16] LABS: ALCOHOL(ethanol),MEDICAL < 10 mg/dL (0-10); SALICYLATE < 5.0 mg/dL (15.0-30.0)
[2023-10-16 17:19] LABS: COLLECTION METHOD CLEAN CATCH
[2023-10-16 17:29] LABS: URINE APPEARANCE CLEAR (CLEAR/HAZY); URINE BLOOD NEGATIVE (NEGATIVE); URINE COLOR YELLOW (YELLOW); URINE GLUCOSE NEGATIVE (NEGATIVE); URINE KETONE NEGATIVE (NEGATIVE); URINE NITRATE NEGATIVE (NEGATIVE); URINE PROTEIN(semi-quant) NEGATIVE (NEGATIVE)
[2023-10-16 17:38] LABS: TRICYCLIC ANTIDEPRESS URINE NEGATIVE (NEGATIVE)
[2023-10-17] MEDS ORDERED: OXcarbazepine 300 MG TAB PO SCH ×2 (09:00→12:00)
[2023-10-17] MEDS ORDERED: OXcarbazepine 150 MG TAB PO SCH (09:00)
[2023-10-17] MEDS ORDERED: Haloperidol 5 MG TAB PO SCH (09:01)
[2023-10-18 07:00] VITALS: TEMP 97.8
[2023-10-19] MEDS ORDERED: OXcarbazepine 300 MG TAB PO SCH (09:00)
[2023-10-19] MEDS ORDERED: Haloperidol 5 MG TAB PO SCH (09:00)
[2023-10-19 11:09] VITALS: BP 121/69; PULSE 110
[2023-10-19] MEDS ORDERED: OLANZapine 5 MG TAB PO ONE (11:30)
--- NOTE | 2023-10-19 12:05 | NUR ---
foundry worker general received call from AMBER Orellana to provide pt with a bus pass. SW provided pt with one day [employer] bus pass and map. Pt was pacing, on the phone, and had no further questions.
== END 2023-10-19 12:25 | disposition home or self-care (01) ==
LOC: COL.ER 15:31
PROVIDERS: Family Medicine
DX: F31.9 Bipolar disorder, unspecified (principal); F29 Unspecified psychosis not due to a substance or known physiological condition
CPT/HCPCS: G0463

== ENCOUNTER 2023-10-26 19:45 | Emergency (ER) | payer SELFPAY ==
[~2023-10-26] VITALS: Ht 160 cm; Wt 70.1 kg
[2023-10-26 19:49] VITALS: TEMP 98.6
[2023-10-26 19:59] VITALS: BP 106/70; PULSE 68
[2023-10-27 00:21] LABS: ALANINE AMINOTRANSFERASE 17 U/L (0-55); ALBUMIN 3.8 g/dL (3.5-5.0); ALKALINE PHOSPHATASE 61 U/L (40-150); ANION GAP 10 mmol/L (7-16); AST,SGOT 13 U/L (5-34); BILIRUBIN,TOTAL 0.2 mg/dL (0.2-1.2); BLOOD UREA NITROGEN 6 mg/dL (7-19); CALCIUM 9.8 mg/dL (8.4-10.2); CHLORIDE 107 mEq/L (98-107); CREATININE, serum 0.75 mg/dL (0.57-1.11); GLUCOSE 86 mg/dL (70-99); POTASSIUM 4.3 mEq/L (3.5-4.5); SODIUM 140 mEq/L (136-145); TOTAL PROTEIN 7.5 g/dl (6.2-8.1)
[2023-10-27 00:22] LABS: ALCOHOL(ethanol),MEDICAL < 10 mg/dL (0-10); SALICYLATE < 5.0 mg/dL (15.0-30.0)
[2023-10-27 00:28] LABS: BASO % 0.3 % (0.0-2.0); EOS # 0.2 K/mm3 (0.0-0.7); EOS % 2.2 % (0.0-4.0); GRAN # 2.7 K/mm3 (1.4-6.5); GRAN % 37.5 % (42.2-75.2); HEMOGLOBIN 11.8 g/dl (12.5-16.0); LYMPH # 3.5 K/mm3 (1.2-3.4); LYMPH % 49.6 % (20.0-51.0); MEAN CELL VOLUME 86 fl (80.0-100.0); MEAN CORPUSCULAR HEMOGLOBIN 28 pg (27-31); MEAN CORPUSCULAR HGB CONC 32 g/dl (33.0-37.0); MEAN PLATELET VOLUME 11.1 fl (7.4-10.4); MONO # 0.7 K/mm3 (0.1-0.6); MONO % 9.7 % (1.7-9.3); PLATELET COUNT 295 K/mm3 (130-400); RED BLOOD COUNT 4.28 M/mm3 (4.10-5.30); REDCELL DISTRIBUTION WIDTH-CV 15.8 % (11.5-14.5)
[2023-10-27 00:29] LABS: HEMATOCRIT 36.7 % (37.0-47.0)
[2023-10-27 04:15] LABS: COLLECTION METHOD CLEAN CATCH
[2023-10-27 04:34] LABS: PH 6.5 (5.0-8.5); URINE APPEARANCE CLEAR (CLEAR/HAZY); URINE BLOOD NEGATIVE (NEGATIVE); URINE COLOR YELLOW (YELLOW); URINE GLUCOSE NEGATIVE (NEGATIVE); URINE KETONE 1+ (NEGATIVE); URINE NITRATE NEGATIVE (NEGATIVE); URINE PROTEIN(semi-quant) NEGATIVE (NEGATIVE)
[2023-10-27 04:37] LABS: TRICYCLIC ANTIDEPRESS URINE NEGATIVE (NEGATIVE)
== END 2023-10-30 18:25 | disposition home or self-care (01) ==
LOC: COL.ER 19:45
PROVIDERS: Emergency Medicine
DX: R45.851 Suicidal ideations (principal); F20.9 Schizophrenia, unspecified; F31.9 Bipolar disorder, unspecified; Z87.891 Personal history of nicotine dependence

== ENCOUNTER 2023-12-02 15:07 | Emergency (ER) | payer SELFPAY ==
[~2023-12-02] VITALS: Ht 160 cm; Wt 68.6 kg
[2023-12-02 17:46] LABS: BASO % 0.3 % (0.0-2.0); EOS # 0.1 K/mm3 (0.0-0.7); EOS % 1.2 % (0.0-4.0); GRAN # 3.7 K/mm3 (1.4-6.5); GRAN % 48.7 % (42.2-75.2); HEMOGLOBIN 10.7 g/dl (12.5-16.0); LYMPH # 3.2 K/mm3 (1.2-3.4); LYMPH % 42.3 % (20.0-51.0); MEAN CELL VOLUME 82 fl (80.0-100.0); MEAN CORPUSCULAR HEMOGLOBIN 27 pg (27-31); MEAN CORPUSCULAR HGB CONC 32 g/dl (33.0-37.0); MEAN PLATELET VOLUME 9.5 fl (7.4-10.4); MONO # 0.6 K/mm3 (0.1-0.6); MONO % 7.4 % (1.7-9.3); PLATELET COUNT 372 K/mm3 (130-400); RED BLOOD COUNT 4.02 M/mm3 (4.10-5.30); REDCELL DISTRIBUTION WIDTH-CV 15.8 % (11.5-14.5)
[2023-12-02 17:47] LABS: HEMATOCRIT 33.1 % (37.0-47.0)
[2023-12-02 18:05] LABS: ALANINE AMINOTRANSFERASE 12 U/L (0-55); ALBUMIN 3.5 g/dL (3.5-5.0); ALKALINE PHOSPHATASE 64 U/L (40-150); ANION GAP 9 mmol/L (7-16); AST,SGOT 12 U/L (5-34); BILIRUBIN,TOTAL 0.2 mg/dL (0.2-1.2); CALCIUM 9.9 mg/dL (8.4-10.2); CHLORIDE 109 mEq/L (98-107); CREATININE, serum 0.72 mg/dL (0.57-1.11); GLUCOSE 90 mg/dL (70-99); POTASSIUM 3.7 mEq/L (3.5-4.5); SALICYLATE < 5.0 mg/dL (15.0-30.0); SODIUM 139 mEq/L (136-145); TOTAL PROTEIN 6.5 g/dl (6.2-8.1)
[2023-12-02 18:06] LABS: ALCOHOL(ethanol),MEDICAL < 10 mg/dL (0-10)
[2023-12-02 18:10] LABS: BLOOD UREA NITROGEN 9 mg/dL (7-19)
[2023-12-02 18:24] LABS: COLLECTION METHOD CLEAN CATCH
[2023-12-02 18:31] LABS: PH 5.5 (5.0-8.5); URINE APPEARANCE CLEAR (CLEAR/HAZY); URINE BLOOD NEGATIVE (NEGATIVE); URINE COLOR YELLOW (YELLOW); URINE GLUCOSE NEGATIVE (NEGATIVE); URINE KETONE TRACE (NEGATIVE); URINE NITRATE NEGATIVE (NEGATIVE); URINE PROTEIN(semi-quant) NEGATIVE (NEGATIVE); URINE UROBILINOGEN 0.2 E.U/dL (0.2-1.0)
[2023-12-02 18:42] LABS: TRICYCLIC ANTIDEPRESS URINE NEGATIVE (NEGATIVE)
[2023-12-02] MEDS ORDERED: Haloperidol 5 MG TAB PO SCH (21:00)
[2023-12-02] MEDS ORDERED: OXcarbazepine 300 MG TAB PO SCH (21:00)
[2023-12-03 09:30] VITALS: BP 107/68; PULSE 84; TEMP 98.8
[2023-12-03] MEDS ORDERED: OXcarbazepine 300 MG TAB PO SCH (12:00)
== END 2023-12-03 13:04 | disposition home or self-care (01) ==
LOC: COL.ER 15:07
PROVIDERS: Nurse Practitioner
DX: F32.A Depression, unspecified (principal); R45.851 Suicidal ideations; F17.200 Nicotine dependence, unspecified, uncomplicated

== ENCOUNTER 2024-02-10 15:11 | Emergency (ER) | payer MEDICAID ==
[~2024-02-10] VITALS: Ht 160 cm; Wt 90.9 kg
[2024-02-10 15:18] VITALS: TEMP 98.7
[2024-02-10] MEDS ORDERED: PROLIX5TA PO (15:39)
[2024-02-10] MEDS ORDERED: COGENTIN .0.5 MG/TAB PO (15:40)
[2024-02-10] MEDS ORDERED: MINIPRESS2 MG PO (15:41)
[2024-02-10 15:50] LABS: COLLECTION METHOD CLEAN CATCH
[2024-02-10 15:56] LABS: BASO % 0.5 % (0.0-2.0); EOS # 0.1 K/mm3 (0.0-0.7); EOS % 1.2 % (0.0-4.0); GRAN # 1.9 K/mm3 (1.4-6.5); GRAN % 44.4 % (42.2-75.2); HEMATOCRIT 38.4 % (37.0-47.0); HEMOGLOBIN 12.3 g/dl (12.5-16.0); LYMPH # 1.9 K/mm3 (1.2-3.4); LYMPH % 44.2 % (20.0-51.0); MEAN CELL VOLUME 84 fl (80.0-100.0); MEAN CORPUSCULAR HEMOGLOBIN 27 pg (27-31); MEAN CORPUSCULAR HGB CONC 32 g/dl (33.0-37.0); MEAN PLATELET VOLUME 10.1 fl (7.4-10.4); MONO # 0.4 K/mm3 (0.1-0.6); MONO % 9.5 % (1.7-9.3); PLATELET COUNT 315 K/mm3 (130-400); RED BLOOD COUNT 4.58 M/mm3 (4.10-5.30); REDCELL DISTRIBUTION WIDTH-CV 15.8 % (11.5-14.5)
[2024-02-10 16:04] LABS: PH 5.5 (5.0-8.5); URINE APPEARANCE CLOUDY (CLEAR/HAZY); URINE BLOOD 3+ (NEGATIVE); URINE COLOR Dark Yellow (YELLOW); URINE GLUCOSE NEGATIVE (NEGATIVE); URINE KETONE TRACE (NEGATIVE); URINE NITRATE NEGATIVE (NEGATIVE); URINE PROTEIN(semi-quant) TRACE (NEGATIVE)
[2024-02-10 16:14] LABS: ALANINE AMINOTRANSFERASE 27 U/L (0-55); ALBUMIN 3.7 g/dL (3.5-5.0); ALCOHOL(ethanol),MEDICAL < 10 mg/dL (0-10); ALKALINE PHOSPHATASE 66 U/L (40-150); ANION GAP 8 mmol/L (7-16); AST,SGOT 20 U/L (5-34); BILIRUBIN,TOTAL 0.1 mg/dL (0.2-1.2); BLOOD UREA NITROGEN 15 mg/dL (7-19); CHLORIDE 110 mEq/L (98-107); CREATININE, serum 0.99 mg/dL (0.57-1.11); GLUCOSE 116 mg/dL (70-99); POTASSIUM 3.8 mEq/L (3.5-4.5); SALICYLATE < 5.0 mg/dL (15.0-30.0); SODIUM 142 mEq/L (136-145); TOTAL PROTEIN 7.2 g/dl (6.2-8.1)
[2024-02-10 16:20] LABS: TRICYCLIC ANTIDEPRESS URINE NEGATIVE (NEGATIVE)
[2024-02-10 18:36] VITALS: BP 108/65; PULSE 72
== END 2024-02-10 18:44 | disposition home or self-care (01) ==
LOC: COL.ER 15:11
PROVIDERS: Nurse Practitioner
DX: R44.0 Auditory hallucinations (principal); F17.200 Nicotine dependence, unspecified, uncomplicated; Z86.59 Personal history of other mental and behavioral disorders

== ENCOUNTER 2024-02-20 09:00 | Emergency (ER) | payer SELFPAY ==
[~2024-02-20] VITALS: Ht 160 cm; Wt 81.8 kg
[~2024-02-20 09:00] MED LIST changes: +COGENTIN .0.5 MG/TAB PO; +MINIPRESS2 MG PO; +PROLIX5TA PO
[2024-02-20 09:27] LABS: COLLECTION METHOD CLEAN CATCH
[2024-02-20 09:31] LABS: URINE APPEARANCE CLEAR (CLEAR/HAZY); URINE BLOOD NEGATIVE (NEGATIVE); URINE COLOR YELLOW (YELLOW); URINE GLUCOSE NEGATIVE (NEGATIVE); URINE KETONE NEGATIVE (NEGATIVE); URINE NITRATE NEGATIVE (NEGATIVE); URINE PROTEIN(semi-quant) NEGATIVE (NEGATIVE)
[2024-02-20 09:52] LABS: TRICYCLIC ANTIDEPRESS URINE NEGATIVE (NEGATIVE)
[2024-02-20 09:57] LABS: BASO % 0.4 % (0.0-2.0); EOS # 0.1 K/mm3 (0.0-0.7); EOS % 2.5 % (0.0-4.0); GRAN # 2.4 K/mm3 (1.4-6.5); GRAN % 51.1 % (42.2-75.2); HEMATOCRIT 34.6 % (37.0-47.0); HEMOGLOBIN 11.4 g/dl (12.5-16.0); LYMPH # 1.7 K/mm3 (1.2-3.4); LYMPH % 36.2 % (20.0-51.0); MEAN CELL VOLUME 83 fl (80.0-100.0); MEAN CORPUSCULAR HEMOGLOBIN 28 pg (27-31); MEAN CORPUSCULAR HGB CONC 33 g/dl (33.0-37.0); MEAN PLATELET VOLUME 9.9 fl (7.4-10.4); MONO # 0.5 K/mm3 (0.1-0.6); MONO % 9.6 % (1.7-9.3); PLATELET COUNT 323 K/mm3 (130-400); RED BLOOD COUNT 4.15 M/mm3 (4.10-5.30); REDCELL DISTRIBUTION WIDTH-CV 16.2 % (11.5-14.5)
[2024-02-20 10:01] LABS: ALANINE AMINOTRANSFERASE 12 U/L (0-55); ALBUMIN 3.4 g/dL (3.5-5.0); ALKALINE PHOSPHATASE 60 U/L (40-150); ANION GAP 8 mmol/L (7-16); AST,SGOT 10 U/L (5-34); BILIRUBIN,TOTAL 0.2 mg/dL (0.2-1.2); CALCIUM 8.8 mg/dL (8.4-10.2); CHLORIDE 107 mEq/L (98-107); CREATININE, serum 0.67 mg/dL (0.57-1.11); GLUCOSE 97 mg/dL (70-99); POTASSIUM 3.8 mEq/L (3.5-4.5); SODIUM 140 mEq/L (136-145); TOTAL PROTEIN 6.5 g/dl (6.2-8.1)
[2024-02-20 10:06] LABS: ALCOHOL(ethanol),MEDICAL < 10 mg/dL (0-10); BLOOD UREA NITROGEN < 5 mg/dL (7-19)
[2024-02-20] MEDS ORDERED: TRILEPTAL 300M300 MG PO (13:09)
[2024-02-20] MEDS ORDERED: MINIPRESS2 MG (13:11)
[2024-02-20 13:25] VITALS: BP 111/74; PULSE 74; TEMP 97.7
[2024-02-20] MEDS ORDERED: OXcarbazepine 300 MG TAB PO SCH (14:30)
[2024-02-20] MEDS ORDERED: Benztropine 1 MG TAB PO SCH (21:00)
[2024-02-20] MEDS ORDERED: OXcarbazepine 150 MG TAB PO SCH (21:00)
[2024-02-20] MEDS ORDERED: Prazosin 1 MG CAP PO SCH (21:00)
[2024-02-20] MEDS ORDERED: Haloperidol 5 MG TAB PO SCH (21:00)
[2024-02-21] MEDS ORDERED: OXcarbazepine 150 MG TAB PO SCH (09:00)
== END 2024-02-20 17:30 | disposition left against medical advice (07) ==
LOC: COL.ER 09:00
PROVIDERS: Personal Emergency Response Attendant
DX: F20.9 Schizophrenia, unspecified (principal)

== ENCOUNTER 2024-02-22 01:46 | Emergency (ER) | payer SELFPAY ==
[~2024-02-22] VITALS: Ht 160 cm; Wt 86.4 kg
[~2024-02-22 01:46] MED LIST changes: +MINIPRESS2 MG
[2024-02-22 01:50] VITALS: BP 99/67; TEMP 98
[2024-02-22 02:37] VITALS: PULSE 80
== END 2024-02-22 02:37 | disposition home or self-care (01) ==
LOC: COL.ER 01:46
DX: F31.9 Bipolar disorder, unspecified (principal); F17.200 Nicotine dependence, unspecified, uncomplicated

== ENCOUNTER 2024-02-23 10:52 | Emergency (ER) | payer MEDICAID ==
[~2024-02-23] VITALS: Ht 160 cm; Wt 86.4 kg
[2024-02-23] MEDS ORDERED: OLANZapine 5 MG TAB PO ONE (12:15)
[2024-02-23 12:52] LABS: BASO % 0.6 % (0.0-2.0); EOS # 0.1 K/mm3 (0.0-0.7); EOS % 2.2 % (0.0-4.0); GRAN # 2.1 K/mm3 (1.4-6.5); GRAN % 41.8 % (42.2-75.2); HEMATOCRIT 38.4 % (37.0-47.0); HEMOGLOBIN 12.3 g/dl (12.5-16.0); LYMPH # 2.2 K/mm3 (1.2-3.4); MEAN CELL VOLUME 85 fl (80.0-100.0); MEAN CORPUSCULAR HEMOGLOBIN 27 pg (27-31); MEAN CORPUSCULAR HGB CONC 32 g/dl (33.0-37.0); MEAN PLATELET VOLUME 9.5 fl (7.4-10.4); MONO # 0.6 K/mm3 (0.1-0.6); MONO % 11.2 % (1.7-9.3); PLATELET COUNT 367 K/mm3 (130-400); RED BLOOD COUNT 4.52 M/mm3 (4.10-5.30); REDCELL DISTRIBUTION WIDTH-CV 16.2 % (11.5-14.5)
[2024-02-23 13:03] LABS: COLLECTION METHOD CLEAN CATCH
[2024-02-23 13:12] LABS: PH 8.5 (5.0-8.5); URINE APPEARANCE CLEAR (CLEAR/HAZY); URINE BLOOD NEGATIVE (NEGATIVE); URINE COLOR YELLOW (YELLOW); URINE GLUCOSE NEGATIVE (NEGATIVE); URINE KETONE NEGATIVE (NEGATIVE); URINE NITRATE NEGATIVE (NEGATIVE); URINE PROTEIN(semi-quant) TRACE (NEGATIVE)
[2024-02-23 13:18] LABS: TRICYCLIC ANTIDEPRESS URINE NEGATIVE (NEGATIVE)
[2024-02-23 13:55] LABS: ALANINE AMINOTRANSFERASE 9 U/L (0-55); ALBUMIN 3.7 g/dL (3.5-5.0); ALKALINE PHOSPHATASE 63 U/L (40-150); ANION GAP 10 mmol/L (7-16); AST,SGOT 10 U/L (5-34); BILIRUBIN,TOTAL 0.2 mg/dL (0.2-1.2); BLOOD UREA NITROGEN 10 mg/dL (7-19); CALCIUM 9.5 mg/dL (8.4-10.2); CHLORIDE 104 mEq/L (98-107); CREATININE, serum 0.76 mg/dL (0.57-1.11); GLUCOSE 88 mg/dL (70-99); SODIUM 138 mEq/L (136-145); TOTAL PROTEIN 7.2 g/dl (6.2-8.1)
[2024-02-23 14:01] LABS: ALCOHOL(ethanol),MEDICAL < 10 mg/dL (0-10); SALICYLATE < 5.0 mg/dL (15.0-30.0)
[2024-02-23] MEDS ORDERED: Nicotine 21 MG DAILY PATCH TD ONE (15:15)
[2024-02-23] MEDS ORDERED: OLANZapine 10 MG Orally-Disinteg TAB PO ONE (18:45)
[2024-02-23 19:25] VITALS: TEMP 98
[2024-02-24] MEDS ORDERED: OLANZapine 10 MG Orally-Disinteg TAB PO ONE (08:30)
[2024-02-24 09:05] VITALS: BP 101/71; PULSE 99
== END 2024-02-24 09:32 | disposition home or self-care (01) ==
LOC: COL.ER 10:52
PROVIDERS: Physician Assistant
DX: R46.89 Other symptoms and signs involving appearance and behavior (principal); F17.210 Nicotine dependence, cigarettes, uncomplicated

== ENCOUNTER 2024-04-17 18:07 | Emergency (ER) | payer SELFPAY ==
[~2024-04-17] VITALS: Ht 160 cm; Wt 72.7 kg
[2024-04-17 21:22] LABS: BASO % 0.4 % (0.0-2.0); EOS # 0.2 K/mm3 (0.0-0.7); EOS % 2.3 % (0.0-4.0); GRAN # 3.2 K/mm3 (1.4-6.5); GRAN % 37.8 % (42.2-75.2); HEMOGLOBIN 11.7 g/dl (12.5-16.0); LYMPH # 4.2 K/mm3 (1.2-3.4); LYMPH % 50.8 % (20.0-51.0); MEAN CELL VOLUME 82 fl (80.0-100.0); MEAN CORPUSCULAR HEMOGLOBIN 27 pg (27-31); MEAN CORPUSCULAR HGB CONC 34 g/dl (33.0-37.0); MEAN PLATELET VOLUME 9.7 fl (7.4-10.4); MONO # 0.7 K/mm3 (0.1-0.6); MONO % 8.5 % (1.7-9.3); PLATELET COUNT 389 K/mm3 (130-400); RED BLOOD COUNT 4.27 M/mm3 (4.10-5.30); REDCELL DISTRIBUTION WIDTH-CV 14.9 % (11.5-14.5)
[2024-04-17 21:24] LABS: HEMATOCRIT 34.9 % (37.0-47.0)
[2024-04-17 21:36] LABS: ALANINE AMINOTRANSFERASE 14 U/L (0-55); ALBUMIN 3.2 g/dL (3.5-5.0); ALKALINE PHOSPHATASE 63 U/L (40-150); ANION GAP 7 mmol/L (7-16); AST,SGOT 12 U/L (5-34); BILIRUBIN,TOTAL 0.1 mg/dL (0.2-1.2); BLOOD UREA NITROGEN 9 mg/dL (7-19); CALCIUM 8.4 mg/dL (8.4-10.2); CHLORIDE 105 mEq/L (98-107); CREATININE, serum 0.74 mg/dL (0.57-1.11); GLUCOSE 102 mg/dL (70-99); POTASSIUM 4.3 mEq/L (3.5-4.5); SODIUM 136 mEq/L (136-145); TOTAL PROTEIN 6.3 g/dl (6.2-8.1)
[2024-04-17 21:45] LABS: ALCOHOL(ethanol),MEDICAL < 10 mg/dL (0-10); SALICYLATE < 5.0 mg/dL (15.0-30.0)
[2024-04-17 21:56] LABS: TSH w REFLEX 1.184 uIU/mL (0.350-4.940)
[2024-04-18 00:35] LABS: COLLECTION METHOD CLEAN CATCH
[2024-04-18 00:41] LABS: PH 7.5 (5.0-8.5); URINE APPEARANCE CLEAR (CLEAR/HAZY); URINE BLOOD NEGATIVE (NEGATIVE); URINE COLOR YELLOW (YELLOW); URINE GLUCOSE NEGATIVE (NEGATIVE); URINE KETONE NEGATIVE (NEGATIVE); URINE NITRATE NEGATIVE (NEGATIVE); URINE PROTEIN(semi-quant) NEGATIVE (NEGATIVE); URINE UROBILINOGEN 0.2 E.U/dL (0.2-1.0)
[2024-04-18 00:58] LABS: TRICYCLIC ANTIDEPRESS URINE NEGATIVE (NEGATIVE)
[2024-04-18] MEDS ORDERED: OLANZapine 10 MG Orally-Disinteg TAB PO SCH (07:30)
[2024-04-18] MEDS ORDERED: Benztropine 1 MG TAB PO SCH (09:00)
[2024-04-18] MEDS ORDERED: OXcarbazepine 150 MG TAB PO SCH (09:00)
[2024-04-18] MEDS ORDERED: OXcarbazepine 300 MG TAB PO SCH (09:00)
[2024-04-18] MEDS ORDERED: diazePAM 5 MG TAB PO ONE (09:15)
[2024-04-18] MEDS ORDERED: Prazosin 1 MG CAP PO SCH (21:00)
[2024-04-19 07:07] VITALS: BP 119/76; PULSE 103; TEMP 98.3
== END 2024-04-19 07:10 | disposition home or self-care (01) ==
LOC: COL.ER 18:07
PROVIDERS: Nurse Practitioner Primary Care
DX: R44.0 Auditory hallucinations (principal); F17.210 Nicotine dependence, cigarettes, uncomplicated